=== PATIENT | male | born 1985 | race Caucasian/White ===

== ENCOUNTER 2018-04-27 08:02 | Inpatient (IN) | payer SELFPAY ==
[~2018-04-27] VITALS: Ht 167.6 cm; Wt 74.1 kg
[2018-04-27] MEDS ORDERED: TRAMADOL 50MG TABLET PO ONE (09:15)
[2018-04-27 09:53] LABS: MEAN CORPUSCULAR HEMOGLOBIN 34.5 pg (28.0-32.0); MEAN CORPUSCULAR VOLUME 98.9 fL (80.0-94.0); MEAN PLATELET VOLUME 9.7 fl (7.4-10.4); PLATELET 152 x1000/uL (130-400); RED BLOOD CELL COUNT 4.65 mill/uL (4.7-6.1); RED CELL DISTRIBUTION WIDTH 13.4 % (11.6-14.6)
[2018-04-27 09:58] LABS: CHLORIDE 100 mEq/L (98-107)
[2018-04-27 10:15] LABS: CLARITY URINE CLEAR (CLEAR); COLOR URINE ORANGE (YELLOW); KETONES URINE NEGATIVE (NEGATIVE); LEUKOCYTE ESTERASE URINE 1+ (NEGATIVE); NITRITE URINE POSITIVE (NEGATIVE); OCCULT BLOOD URINE NEGATIVE (NEGATIVE); PH URINE >=9.0 (4.5-8.0); PROTEIN URINE 3+ (NEGATIVE); SPECIFIC GRAVITY URINE 1.036 (1.005-1.030)
[2018-04-27 10:34] LABS: PLATELET ESTIMATE NORMAL
[2018-04-27] MEDS ORDERED: KCL 20MEQ/100ML PREMIX 100 ML IV ONE (10:45)
[2018-04-27] MEDS ORDERED: CEFTRIAXONE 1 G PREMIX 50 ML IV ONE (11:00)
[2018-04-27 11:04] LABS: PHENCYCLIDINE URINE SCREEN NEGATIVE (NEGATIVE)
[2018-04-27 11:05] LABS: *AMPHETAMINES SCREEN URINE NEGATIVE (NEGATIVE); *BARBITURATES SCREEN URINE NEGATIVE (NEGATIVE); *BENZODIAZEPINES SCREEN URINE NEGATIVE (NEGATIVE); *COCAINE SCREEN URINE NEGATIVE (NEGATIVE); CANNABINOID URINE SCREEN NEGATIVE (NEGATIVE); METHADONE URINE SCREEN NEGATIVE (NEGATIVE)
[2018-04-27 11:06] LABS: OPIATES URINE SCREEN NEGATIVE (NEGATIVE)
[2018-04-27] MEDS: POTASSIUM CHLORIDE 20MEQ TABLET SR PO SCH ×2 (11:15→15:31)
[2018-04-27 15:00] VITALS: BP 148/91
[2018-04-27 16:00] VITALS: BP 140/86
[2018-04-27] MEDS ORDERED: MORPHINE SULFATE 4 MG/ML CPJ (NOT FOR IM USE) IV PRN (17:00)
[2018-04-27] MEDS ORDERED: ONDANSETRON 4MG ODT PO PRN (17:00)
[2018-04-27] MEDS ORDERED: ONDANSETRON HCL 4MG/2ML VIAL IV PRN (17:00)
[2018-04-27] MEDS: DEXT 5%/0.45% NACL KCL 10MEQ/L 1,000 ML IV SCH (17:55)
[2018-04-27] MEDS: ACETAMINOPHEN 325MG TABLET PO PRN (17:55)
[2018-04-27 18:02] VITALS: BP 92/87
[2018-04-27 19:07] LABS: HEPATITIS B SURFACE ANTIGEN NEGATIVE
[2018-04-27 19:35] LABS: HEPATITIS B CORE AB IGM NEGATIVE
[2018-04-27 19:37] LABS: HEPATITIS A AB IGM NEGATIVE (NEGATIVE)
[2018-04-27 20:00] VITALS: BP 124/85
[2018-04-27 22:00] VITALS: BP 137/76
[2018-04-28] VITALS (11 sets, daily range): BP systolic 115–146; BP diastolic 75–91
[2018-04-28] MEDS: ACETAMINOPHEN 325MG TABLET PO PRN (00:36)
[2018-04-28 06:59] LABS: HEMATOCRIT. 41.5 % (42.0-52.0); HEMOGLOBIN. 14.3 g/dL (14.0-18.0); MEAN CORPUSCULAR HEMOGLOBIN 34.3 pg (28.0-32.0); MEAN CORPUSCULAR VOLUME 99.7 fL (80.0-94.0); PLATELET 118 x1000/uL (130-400); RED BLOOD CELL COUNT 4.16 mill/uL (4.7-6.1); RED CELL DISTRIBUTION WIDTH 13.7 % (11.6-14.6)
[2018-04-28 07:56] LABS: CHLORIDE 101 mEq/L (98-107)
[2018-04-28] MEDS: DEXT 5%/0.45% NACL KCL 10MEQ/L 1,000 ML IV SCH ×2 (10:04→22:30)
[2018-04-28] MEDS: POTASSIUM CHLORIDE 20MEQ TABLET SR PO SCH ×2 (14:00→14:09)
[2018-04-28 16:54] LABS: PLATELET ESTIMATE DECREASED
[2018-04-29] VITALS (11 sets, daily range): BP systolic 114–147; BP diastolic 64–84
[2018-04-29 07:24] LABS: CHLORIDE 101 mEq/L (98-107)
[2018-04-29] MEDS: DEXT 5%/0.45% NACL KCL 10MEQ/L 1,000 ML IV SCH (10:52)
[2018-04-29] MEDS ORDERED: POTASSIUM CHLORIDE 20MEQ TABLET SR PO NR (14:45)
[2018-04-29 16:59] LABS: CHLORIDE 100 mEq/L (98-107)
== END 2018-04-29 18:30 | disposition home or self-care (01) | DRG 282 ==
LOC: ER 08:53 → 3WST 10:53 → EDBEDREQTM 11:00 → EDBEDREQ 11:00 → ENRESERV 13:54
PROVIDERS: ADMIT Hospitalist; ATTEND Hospitalist
DX: K85.90 Acute pancreatitis without necrosis or infection, unspecified (principal); B19.20 Unspecified viral hepatitis C without hepatic coma; E87.6 Hypokalemia; E11.9 Type 2 diabetes mellitus without complications; E78.00 Pure hypercholesterolemia, unspecified; I10 Essential (primary) hypertension
CPT/HCPCS: 36415; 74176; 80048; 80053; 80076; 80305; 81003; 82962; 83690; 83735; 84132; 84484; 85007; 85025; 85027; 86705; 86709; 86803; 87040; 87086; 87340; 93005; 96365; 96366; 96367; 99285; J0696; J3480